=== PATIENT | female | born 1975 | race Caucasian/White ===

== ENCOUNTER 2025-09-07 17:48 | Emergency (ER) | payer OTHER, SELFPAY ==
[2025-09-07 17:54] VITALS: BP 157/95; PULSE 104; RESP 24; TEMP 36.5; O2SAT 97; BMI 32.6
--- OUTSIDE RECORDS SUMMARY | 2025-09-07 17:59 | XMS_ITS | Clinical Summary ---
Author Organization [facility] Address [address] [place] [address] Care Team Providers [employer] Underwriter Name Role Phone No Ref-Primary, Physician Primary Care Provider Allergies No known active allergies Medications * This document contains information received from the source organization and may not represent a complete record from that organization. MedicationSigDispense QuantityRefillsLast FilledStart DateEnd DateStatus LANsoprazole (PREVACID) 30 MG capsule Take 30 mg by mouth daily.Active LamoTRIgine (LAMICTAL PO) Take 200 mg by mouth 2 times dailyActive drospirenone-ethinyl estradiol (KIMBERLY) 3-0.02 MG per tablet Take 1 tablet by mouth dailyActive Topiramate (TOPAMAX PO) Take 25 mg by mouth 2 times dailyActive NALTREXONE HCL PO Take by mouth dailyActive PROPRANOLOL HCL PO Take 10 mg by mouth dailyActive VITAMIN D, CHOLECALCIFEROL, PO Take by mouth dailyActive IBUPROFEN PO Take 600 mg by mouth dailyActive Vit-Fe Fumarate-FA ( MULTIVITAMIN PLUS IRON) 27-0.8 MG TABS Take 1 tablet by mouth dailyActive Docusate Sodium (COLACE PO) Active mometasone (NASONEX) 50 MCG/ACT nasal spray Indications:Acute rhinitisSpray 2 sprays into both nostrils daily 1 Box Active metoclopramide (REGLAN) 10 MG tablet Take 1 tablet (10 mg) by mouth 3 times daily as needed (Headache, Nausea or Vomiting) 20 tablet 2Active Active Problems No known active problems Family History Medical HistoryRelationCommentsDepressionBrotherSubstance AbuseBrotherAnxiety DisorderMaternal GrandfatherDepressionMaternal GrandfatherAnxiety Disorder Maternal GrandmotherBipolar DisorderMaternal GrandmotherDepressionMaternal GrandmotherAnxiety DisorderMotherDepressionMotherRelationStatusCommentsBrother AliveMaternal GrandfatherAliveMaternal GrandmotherDeceasedMotherAlive Social History Tobacco UseTypesPacks/DayYears UsedDateSmoking Tobacco: NeverSmokeless Tobacco: NeverAlcohol UseStandard Drinks/WeekCommentsYes0 (1 standard drink = 0.6 oz pure alcohol)Adolescent EducationAnswerDate RecordedGetting School Help NeededNot on file3CommentsUnknownSex and Gender InformationValueDate RecordedSex Assigned at BirthNot on fileLegal ChkMcpscq22/04/2012 3:01 AM [facility] Gender IdentityNot on fileSexual OrientationNot on file Last Filed Vital Signs Vital SignReadingTime TakenCommentsBlood Yvxesxgn905/9009/12/2022 6:40 PM [facility] Tftox069109/12/2022 6:40 PM JTRZwalqzatgkd95.4 ??C (97.6 ??F)09/12/2022 11:43 AM CSTRespiratory Mbrz782711/13/2021 6:40 PM CSTOxygen Hluogbngvx44%09/12/2022 6:40 PM CSTInhaled Oxygen Concentration--Dmylnm22.2 kg (150 lb 6.4 oz)01/03/2016 5:12 PM GSEOlkmmb346.2 cm (5' 7)07/13/2011 3:03 PM CDTBody Mass Index23.561 3:03 PM CDT Plan of Treatment Health MaintenanceDue DateLast DoneCommentsADVANCE CARE PIUICBJM1976ANNUAL REVIEW OF HM ZMXBLC2407/05/1976CT QUWOYRVJZVEH48/12/8228CYX9207/05/1976FLEX SIG 1976MAMMO NINXDXQAR1976sDNA (Cologuard)1976COLONOSCOPY 1986COLORECTAL CANCER XTWLFRMGV19/12/1986HIV OMZFRAZQS02/12/1991HEPATITIS C ZACLKHJHA47/12/1379DDQ07/12/1997HEPATITIS B VACCINE (2 of 3 - Hep B Twinrix 3- dose series)LIPID2016DTAP/TDAP/TD VACCINE (2 - Td or Tdap)YEARLY PREVENTIVE VISIT1PHQ-2 (once per calendar year)5COVID-19 VACCINE (5 - season)2025 07/17/2022, 08/25/2021, 01/19/2021, Additional history existsINFLUENZA VACCINE (#1), 07/21/2021, 08/13/2020, Additional history exists DIABETES CILDIZKSZ64, 11/23/2007, 10/16/2006ZOSTER VACCINE (1 of 2)2026HPV VACCINE (No Doses Required)CompletedMENINGITIS VACCINEAged OutNo longer eligible based on patient's age to complete this topicPNEUMOCOCCAL VACCINE: PEDIATRICS (0 to 5 YEARS) AND AT-RISK PATIENTS (6 to 49 YEARS)Aged Out No longer eligible based on patient's age to complete this topic Procedures Procedure NamePriorityDate/TimeAssociated DiagnosisCommentsBASIC METABOLIC PANEL STAT111/13/2021 12:12 PM [facility] from Last 3 Months or Most Recently Relevant to Health Maintenance Results * (ABNORMAL) Basic metabolic panel (BMP) (09/12/2022 12:12 PM [facility])ComponentValue Ref RangeTest MethodAnalysis TimePerformed AtPathologist ZaiaeypczUeosac043084 - 145 mmol/L111/13/2021 1:02 PM [facility] LABORATORYPotassium4.33.4 - 5.3 mmol/L 09/12/2022 1:02 PM [facility] VHNBALSCQSDmnzqkld49504 - 107 mmol/L111/13/2021 1:02 PM [facility] LABORATORYCarbon Dioxide (CO2)2422 - 29 mmol/L111/13/2021 1:02 PM [facility] RH LABORATORYAnion Bvg760 - 15 mmol/L111/13/2021 1:02 PM [facility] LABORATORYUrea Wuynvfyu66.06.0 - 20.0 mg/dL09/12/2022 1:02 PM [facility] LABORATORYCreatinine1.01 (H)0.51 - 0.95 mg/dL09/12/2022 1:02 PM [facility] LABORATORYCalcium9.98.6 - 10.0 mg/dL09/12/2022 1:02 PM [facility] KRABOSQWZOKlfuoci128(H)70 - 99 mg/dL09/12/2022 1:02 PM [facility] LABORATORYGFR Tibflhsy73>60 mL/min/1.43v23209/12/2022 1:02 PM [facility] LABORATORYComment:Effective September 13, 2021 eGFRcr in adults is calculated using the 2020 CKD-EPI creatinine equation which includes age and gender (Shira et al., NEJ, DOI: 10.1056/BUAPbm4939712)Specimen (Source) Anatomical Location / LateralityCollection Method / VolumeCollection Time Received TimeBloodBLOOD SPECIMEN / UnknownVenipuncture / Msxrlrf7409/12/2022 12:12 PM CST09/12/2022 12:36 PM [facility] Narrative Authorizing ProviderResult TypeResult StatusJerome Fredi Shine MDLAB - BLOOD ORDERABLESFinal ResultPerforming OrganizationAddressCity/State/ZIP CodePhone Number [facility] [address] [facility] (1st floor, no room number) [place] [address], [facility] [phone] from Last 3 Months or Most Recently Relevant to Health Maintenance Insurance * Guarantor: Clary Garcia TypeRelation to PatientDate of BirthPhone Billing [id number] [place] [address] Care Teams Team MemberRelationshipSpecialtyStart DateEnd Date No Ref-Primary, Physician PCP - Rvqlyot47/20/22
--- OUTSIDE RECORDS SUMMARY | 2025-09-07 17:59 | XMS_ITS | Clinical Summary ---
Author Organization [facility] Address [address] [place] [address] Care Team Providers Care Central Supply Aide Name Role Phone ManasErlinda wallacerajinder LOVE Unavailable [phone] Lore Razo Unavailable [phone] Neelima Almanza DO Primary Care Provid er Allergies Active AllergyReactionsCriticalityNoted QbxoRvbtcxpwDvsvdswuzRipm15/04/2025Mold Other - Describe In Comment Field04/02/2012 nasal congestion and sneezing Pollen ExtractsOther - Describe In Comment Field04/02/2012 nasal congestion and sneezing RagweedOther - Describe In Comment Field04/02/2012 nasal congestion and sneezing OggxskvyTiwvhqkRun23/25/2013 Medications * This document contains information received from the source organization and may not represent a complete record from that organization. MedicationSigDispense QuantityRefillsLast FilledStart DateEnd DateStatus lamoTRIgine (LAMICTAL) 200 mg tablet Take 200 mg by mouth 2 times daily.10/15/2020ctive durable medical equipment (DME) Indications:Pronation deformity of left foot,Metatarsalgia of both feetCustom functional orthotics for left foot pronation and metatarsal bilateral feet. Please add metatarsal support bilateral and extrinsic rearfoot posting left foot. 1 Each 06/01/2021ctive melatonin 3 mg tablet Take 1 Tablet (3 mg) by mouth at bedtime.ctive TENS unit and electrodes cmpk Indications:Postop check,Excessive menstruation at pubertyAs directed. 4 lead Once order is placed, it should be printed and faxed to [employer] (the distributor), along with a printed picture ID of the patient, to . If [employer] needs to be reached for clarification or speak to one of their representatives, they may be reached at . ?? Many times, insurance will not cover the cost of the tens unit (and pads), and it is often more cost efficient for the patient to order the TENS device (and pads) on [employer], as the cost is close to around $30. ?? With either ordering through [employer] or [employer], directions will be included in the package and patient would follow those 1 Each 2023ctive medication order composer Zinc: Daily Magnesium Citrate: Daily : Daily Fish oil: Daily Vitamin D 5000 IU: Daily Probiotic: Daily03/04/2024ctive cholecalciferol (VITAMIN D3) 5,000 unit capsule 03/31/2014ctive Sjgkh-2-TLP-EPA-Fish Oil (Fish OiL) 1,000 (120-180) mg cap 07/24/2023ctive pnzoenbk81/iron donis/folic/dha ( DHA+COMPLETE ORAL) 03/31/2014ctive varenicline tartrate 1 mg tablet Indications:Current every day vapingTake 1 mg by mouth two times daily with meals. 84 Tablet 5Active Additional Information Patient not taking.Reported on 09/03/2025 omeprazole 40 mg Delayed-Release capsule Indications:Gastroesophageal reflux disease without esophagitisTake 1 Capsule (40 mg) by mouth once daily before a meal. 90 Capsule 5Active topiramate 25 mg tablet Indications:Obesity, Class I, BMI 30-34.9Take 2 Tablets (50 mg) by mouth two times daily. Please contact prescribing provider for directionson how to safely discontinue this medication. 360 Tablet 5Active buPROPion (WELLBUTRIN XL) 300 mg Extended-Release tablet Indications:Obesity, Class I, BMI 30-34.9,AnxietyTake 1 Tablet (300 mg) by mouth once daily. 90 Tablet 5Active naltrexone (REVIA) 50 mg tablet Indications:Obesity, Class I, BMI 30-34.9Take 1 Tablet (50 mg) by mouth once daily. Naltrexone should be stopped 7 days prior to any surgeryor with concurrent oral opioids, opioid pain pump, opioid pain patches, opioid buccal films or medical marijuana. 90 Tablet 5Active progesterone micronized (PROMETRIUM) 100 mg capsule Indications:Menorrhagia with regular cycle,Perimenopause,Hot flashesTAKE 3 CAPSULES BY MOUTH AT BEDTIME 180 Capsule 5Active psyllium (MetamuciL) 0.4 gram capsule Take 1 Capsule by mouth once daily.5Active gabapentin (NEURONTIN) 300 mg capsule Indications:Lumbar radiculopathyTake 1 Capsule (300 mg) by mouth three times daily. 90 Capsule 5Active estradioL (ESTRACE) 0.01% (0.1 mg/g) vaginal cream Indications:Perimenopause,Dyspareunia in femaleInsert 1 g into the vagina once weekly. Continue 1 g once weekly after that. We can adjust based onsymptoms. 42.5 g 5Active Phentermine HCl 37.5 mg capsule Indications:Obesity, Class I, BMI 30-34.9Take 1 Capsule (37.5 mg) by mouth once daily before a meal. Take before breakfast. Phentermine willneed to be discontinued 4 days prior to a surgical procedure. 30 Capsule 5Active Additional Information Patient not taking.Reported on 09/03/2025 baclofen 5 mg tab tablet Indications:Lumbar radiculopathy,Bilateral sciaticaTake 2 Tablets (10 mg) by mouth three times daily. 180 Tablet 6Active Additional Information Patient not taking.Reported on 09/03/2025 naproxen (NAPROSYN) 500 mg tablet Indications:Low back pain radiating to both legsTake 1 Tablet (500 mg) by mouth two times daily with meals. 60 Tablet 5Active Additional Information Patient not taking.Reported on 09/03/2025 valACYclovir (VALTREX) 1 gram tablet Indications:RashTake 1 Tablet (1 g) by mouth three times daily for 7 days. 21 Tablet 5Active triamcinolone (ARISTOCORT; KENALOG) 0.1 % cream Indications:RashApply topically to affected area(s) two times daily. 80 g 5Active tiZANidine (ZANAFLEX) 4 mg tablet Indications:Lumbar radiculopathyTake 1 Tablet (4 mg) by mouth every 6 hours if needed for Muscle Spasm. 90 Tablet 5Active predniSONE (DELTASONE) 20 mg tablet Indications:Low back pain radiating to both legs3 tabs/day orally x 2 days, then 2 tabs/day x 3 days, then 1 tab/day x 3 days, then stop 15 Tablet /Discontinued(Reorder (E-cancel not sent)) tiZANidine (ZANAFLEX) 4 mg tablet Indications:Lumbar radiculopathyTake 1 Tablet (4 mg) by mouth every 6 hours if needed for Muscle Spasm. 90 Tablet /Discontinued(Reorder (E-cancel not sent)) phentermine (ADIPEX-P) 37.5 mg tablet Indications:Obesity, Class I, BMI 30-34.9Take 0.5 Tablets (18.75 mg) by mouth once daily before a meal. Take before breakfast. Phentermine will need to be discontinued 4 days prior to a surgical procedure. 30 Tablet /Discontinued tiZANidine (ZANAFLEX) 4 mg tablet Indications:Lumbar radiculopathyTake 1 Tablet (4 mg) by mouth every 6 hours if needed for Muscle Spasm. 90 Tablet /08/2025Discontinued(Reorder (E-cancel not sent)) predniSONE (DELTASONE) 20 mg tablet Indications:Low back pain radiating to both legs3 tabs/day orally x 2 days, then 2 tabs/day x 3 days, then 1 tab/day x 3 days, then stop 15 Tablet /12/2024Discontinued(*Patient states no longer taking) baclofen 5 mg tab tablet Indications:Lumbar radiculopathy,Bilateral sciaticaTake 1 Tablet (5 mg) by mouth three times daily for 3 days, THEN 2 Tablets (10 mg) three times daily for 27 days. 171 Tablet /06/2025Discontinued(Reorder (E-cancel not sent)) meloxicam 15 mg tablet Indications:Lumbar radiculopathy,Bilateral sciaticaTake 1 Tablet (15 mg) by mouth once daily for 14 days. 14 Tablet Discontinued(Reorder (E-cancel not sent)) meloxicam 15 mg tablet Indications:Lumbar radiculopathy,Bilateral sciaticaTake one tablet daily as needed for pain. Do not take with other NSAIDs (such as ibuprofen, naproxen, Aleve, Advil). Take with food. 30 Tablet Discontinued(*Med ineffective) naproxen (NAPROSYN) 500 mg tablet Indications:Low back pain radiating to both legsTake 1 Tablet (500 mg) by mouth two times daily with meals. 60 Tablet Discontinued(*Med ineffective) Active Problems ProblemNoted DateDiagnosed DatePrimary acinar cell carcinoma of parotid gland 07/27/2025urrent every day rspwis3201/07/2025Obesity, Class I, BMI 30-34.9 04/17/2024Obesity (BMI 30-39.9)03/20/20242155Rmzrpddaettd83/27/2024Skin cancer 09/05/2023 Overview (12/18/2023): 08/30/2023, left medial chest, superficial and nodular BCC, excised 11/22/2023 Uterine nrjpsau5503/16/2023Endometrial polyp03/16/20232067Qgomsunjokw95/23/2023LGSIL of cervix of undetermined eqsbafkgwgxg45/16/2023 Overview (01/26/2025): 01/2023 LSIL/HPV negative 12/2024 NIL/HPV negative Plan: Pap/HPV due 12/2027 Mqnpory7606/09/2014Parotid mass03/15/2012Menstrual ngyoooiq77/23/2009Esophageal odjnkg2704/04/2005 Overview (04/21/2021): LW Onset: 59Skv86 ; Gastroesophageal Reflux Disease Resolved Problems ProblemNoted DateDiagnosed DateResolved TqdhGjwpua78Parotid massNormal fumfslcp84Supervision of other normal dwujulcnv32Other specified screening(V28.89) Methamphetamine abuse06/16/Frontal sinusitis ipolar 1 kvedxznh45/23/ttention deficit hyperactivity disorder (ADHD), predominantly inattentive type04/04/2005 06/07/2023 Overview (07/21/2021): LW Onset: 76Yii38 Encounters DateTypeDepartmentCare QhvhKzqmthjmbaw52/12/2025Refill [facility] [address] [place] [address] Neelima Almanza DO Refill Request (Tizanidine/)09/03/2025 5:35 PM CSTOffice Visit [facility] [address] [address] Laverne Arias MD Rash09/03/20258598Qyisww15/10/2025Orders Only [facility] [address] [place] [address] Neelima Almanza DO <No scans attached>09/02/2025Orders Only [facility] [address] [place] [address] Neelima Almanza DO <No scans attached>09/02/2025Results Follow-Up [facility] [place] [address] [place] [address] Rafy Barker MD 09/01/2025 12:15 PM CSTAncillary Procedure [facility] [address] [facility] [address] [place] [address] 09/01/2025Telephone [facility] [address] [facility] [address] [place] [address] Lucio Linder MD Screening (Injection Prescreening- Lumbar RFA)08/31/20259231Gxciea91/08/2025Refill [facility] [address] [place] [address] Neelima Almanza, DO Refill Request (Baclofen/)08/29/2025Refill [facility] [address] [place] [phone] Lore Razo PA Refill Request (Bupropion)08/25/2025Orders Only [facility] [address] [place] [phone] Marissa Garcia MBBS <No scans attached>08/25/2025[facility] [address] [place] [phone] Marissa Garcia MBBS <No scans attached>08/25/2025Refill [facility] [address] [place] [address] Neelima Almanza DO Refill Request (meloxicam 15 mg tablet)08/14/2025Telephone [facility] [address] [place] [address] Tylor Osullivan DO Screening (INJECTION PRESCREEN)08/13/2025 1:45 PM CSTOffice Visit [facility] [address] [place] [address] Rafy Barker MD Back Pain (Follow up)08/12/2025 11:00 AM CSTAncillary Procedure [facility] [address] [facility] [address] [place] [address] 08/12/20250761Vhwiyz86/18/2025Refill [facility] [address] [place] [address] Lore Razo PA Refill Request (Phentermine)08/10/2025Refill [facility] [address] [place] [address] Neelima Almanza DO Refill Request (tiZANidine (ZANAFLEX) 4 mg tablet)08/10/2025Medical Messaging [facility] [address] [place] [address] Rafy Barker MD Sciatica pain08/10/20256995Vrdxop53/16/4307Cmsitl80/05/2025 11:44 AM AIRPLANE ENGINEER - 07/29/2025 11:59 PM CSTHospital Encounter [facility] [place] [address] [facility] [address] [place] [address] Rafy Barker MD Ferebee, Ashley, PT Low back pain radiating to both legs; Lumbar facet borvtmwrdte61/05/4908Htbsln03/03/2025 10:40 AM CSTOffice Visit [facility] [address] [place] [address] Neelima Almanza DO Back Pain (follow up x 1 mo/worsening pain); Medication Management (gabapentin) 07/26/20252371Wmtoon69/02/2025Refill [facility] [place] [address] [place] [phone] Clary Terry DO Refill Request (Progesterone Micronized)07/24/2025 10:00 AM CDTTelemedicine [facility] [address] [place] [address] Lore Razo PA Telehealth (No vitals); Weight ([facility] follow up Bupropion, Naltrexone, Topiramate. Wants to discuss GLP-1 today. Zepbound and Saxenda are covered but high copay. /RD 09/02 Kristy )07/23/2025Refill [facility] [address] [place] [address] Neelima Almanza DO Refill Request (gabapentin (NEURONTIN) 100 mg capsule Take 1 cap oral in AM and at noon along with 3 caps at night. After 3-4 days if needed consider increasing to 2 caps in AM and at noon along withevening dose of 3 caps.//)07/21/2025Travel 07/17/2025Refill [facility] [address] [place] [address] Rafy Barker MD Refill Request (Prednisone)07/12/20257536Wheifw33/15/2025 11:15 AM CDTOffice Visit [facility] [address] [place] [address] Rafy Barker MD Back Pain (Follow up)07/08/20256234Ficzhj72/06/20251462Wmsvhn72/07/2025Telephone [facility] [address] [place], [place] [phone] Rafy Barker MD Wqlqmhna12/02/2025Refill [facility] [address] [place] [address] Neelima Almanza DO Refill Request (Premarin)06/24/2025 1:05 PM CDTOffice Visit [facility] [address] [place] [address] Neelima Almanza DO Back Pain (Lower back pain + Sciatica x March); Menopause (perimenopause) 06/24/20253668Nhcnfh35/28/2025Travelfrom Last 3 Months Immunizations ImmunizationAdministration DatesNext DueAMB INFLUENZA, IIV4 (AGE=>6MOS) MDV (Flu Clinic Only)06/24/2020HepA-HepB (Twinrix)07/14/2014Influenza Virus, Unspecified 06/09/2014Influenza, CCIIV3 (Age >=6 MO) (Egg Free)07/07/2024Inflvicky, IIV4 06/07/2023,07/17/2022,07/21/2021,08/13/2020Tdap01/30/2012Tuberculin (PPD) 04/12/2014 Family History Medical HistoryRelationNameCommentsGood HealthBrother 1JaredStrokeBrother 2 Matthewfollowed by seizure - now seizure free x 3 yearsDiabetesFather ParkinsonismFatherCancerMaternal Grandfatherfatal in 40's, type unknown Cancer-pancreaticMaternal Grandmotherage ~79, fatalAnxiety disorderMotherAsthma MotherDepressionMotherDiabetes type IPaternal GrandfatherStrokePaternal GrandmotherGood HealthSonx 2Cancer-breastNo Family HistoryRelationNameStatus CommentsBrother 1JaredAliveBrother 2MatthewAliveFatherAliveMaternal Grandfather DeceasedMaternal GrandmotherDeceasedMotherAlivePaternal GrandfatherDeceased Paternal GrandmotherDeceasedSonx 2Alive Social History Tobacco UseTypesPacks/DayYears UsedDateSmoking Tobacco: NeverPassive Smoke Exposure: NeverSmokeless Tobacco: Never Tobacco Cessation:Counseling Given: Not Answered Alcohol UseStandard Drinks/WeekCommentsNot Currently0 (1 standard drink = 0.6 oz pure alcohol)occasionally recently, heavy in past; quit 11/19/09Humiliation, Afraid, Rape, and Kick questionnaireAnswerDate RecordedWithin the last year, have you been afraid of your partner or ex-partner?No07/21/2021Within the last year, have you been humiliated or emotionally abused in other ways by your partner or ex-partner?No07/21/2021Within the last year, have you been kicked, hit, slapped, or otherwise physically hurt by your partner or ex-partner?No 07/21/2021Within the last year, have you been raped or forced to have any kind of sexual activity by your partner or ex-partner?No07/21/2021HQ-2AnswerDate RecordedPHQ-2 TOTAL GTSYA916Social ConnectionsAnswerDate RecordedDo you often feel lonely or isolated from those around you?lcohol UseAnswer Date RecordedHow often do you have a drink containing alcohol?How many drinks containing alcohol do you have on a typical day when you are drinking?How often do you have five or more drinks on one occasion?0 07/27/2025Financial Resource StrainAnswerDate RecordedDifficulty of Paying Living Ezanwiod215/16/2025Difficulty of Paying Living ExpensesNot on file 08/09/2025Food InsecurityAnswerDate RecordedDo you worry your food will run out before you are able to buy more?Transportation NeedsAnswerDate RecordedDoes lack of transportation keep you from medical appointments?1 08/09/2025Does lack of transportation keep you from work, meetings or getting things that you need?Housing StabilityAnswerDate RecordedWhat is your housing situation today?UtilitiesAnswerDate RecordedDo you have trouble paying for utilities (for example, heat, electricity, water, phone)?1 08/09/2025CommentsNoSex and Gender InformationValueDate RecordedSex Assigned at AcfuxBfklcn96/02/2021 2:56 PM CSTLegal ZvqZrkbso95/14/2013 6:49 AM CSTGender ZvemdgpyFjqfld74/02/2021 2:56 PM CSTSexual OrientationStraight 10/26/2020 2:56 PM CSTOccupationIndustryJob Start DateJob End DateHAIRSTYLISTNot on fileNot on fileNot on filelead webmaster & office mgrNot on fileNot on fileNot on file Obstetrics History GravidaParaTermPretermABIABSABEctopicMultipleLivingLive Vvwlkk643070HxlfRlecopg GATotal LaborLabor/2nd/2aiTmekskZxoYynpUbncNSFGidL2F1YsvqBtlc0163IB09/07/2003 Yyiq92l2t19i 00m/3.09 kg (6 lb 13 oz)MVag-SpontEpidural,EpiduralNLivingMason Delivery Location:[facility]06/20/20102463Nhlr07x5g2x 30m/3.06 kg (6 lb 12 oz)MVagEpidural ,EpiduralNLivingMylesJohnsonDelivery Location:[facility] Comments:No complications Last Filed Vital Signs Vital SignReadingTime TakenCommentsBlood Lxadvkbp179/7209/03/2025 5:30 PM AIRPLANE ENGINEER Tbyju105409/03/2025 5:30 PM OGXMwwdqieuvsw07.6 ??C (97.9 ??F)09/03/2025 5:30 PM CSTRespiratory Qmfd301911/04/2024 5:30 PM CSTOxygen Qwuswnvmsi70%09/03/2025 5:30 PM CSTInhaled Oxygen Concentration--Gzebfq57.5 kg (201 lb 11.2 oz)08/13/2025 1:00 PM MRLJdnnzi469.5 cm (5' 6.34)07/27/2025 10:48 AM CSTBody Mass Index32.22 07/27/2025 10:48 AM AIRPLANE ENGINEER Plan of Treatment DateTypeDepartmentCare Team (Latest Contact Info)Psmmecuwswn21/14/2026 1:[address]Tele[address] [phone] Kristy Bah, KATE [address] [place] [address] 10/26/2025 3:30 PM CSTTelemedicine [address] [phone] [place] [address] [place] [address] Health MaintenanceDue DateLast DoneCommentsPneumococcal series for age 6-49 (1 of 2 - PCV)1995Hepatitis B series for 19+ (2 of 3 - Hep B Twinrix 3-dose series)Tetanus cpfjsro63COVID-19 vaccine series ( season)/, 07/17/2022, 08/25/2021, Additional history existsInfluenza Vaccine (#1)/, 06/07/2023, 07/17/2022, Additional history existsDepression screening for age 12+10/29/2025 10/29/2024, 02/01/2023, 07/21/2021Mammogram for age 45-7504/604/05/2025, 10/21/2021, 10/28/2018BMI (ht and wt on same day) for age 18+07/27/2026 07/27/2025, 07/24/2025, 07/08/2025, Additional history existsPap test for age 21-6504/8001/07/2025, 01/07/2025, 02/01/2023, Additional history exists Lipids for age 45-7504/, 03/13/2024, 11/04/2020, Additional history existsColonoscopy through age 75HIV for age 15-65 Fdrtcwrjb25/04/2013, 12/29/2009Hepatitis C screening for age 18-79Completed 10/28/2012 Procedures Procedure NamePriorityDate/TimeAssociated DiagnosisCommentsXR SPINE LUMBAR MINIMUM 4 IMBKUCdoerja11/09/2025 12:28 PM AIRPLANE ENGINEER Low back pain radiating to both legs Numbness and tingling of both feet Degeneration of intervertebral disc of lumbar region with discogenic back pain Lumbar facet arthropathy MR SPINE LUMBAR CNSKHZ2510/12/2024 11:35 AM AIRPLANE ENGINEER Low back pain radiating to both legs Numbness and tingling of both feet Degeneration of intervertebral disc of lumbar region with discogenic back pain Lumbar facet arthropathy SCAN-LYPFEZZAPZA25/22/2025 10:30 AM CDT URINALYSIS MACROSCOPIC - [facility] ONLY POC DIP (QUEST)Uaxcpui0506/24/2025 2:08 PM CDT Urgency of urination BASIC METABOLIC EQKFXCxvurbc12/01/2025 2:08 PM CDT Elevated serum creatinine LIPID PANEL W REFLEX MEASURED RKFVgdeqwe09/16/2025 1:29 PM CDT Screening for cholesterol level CAN SOLDERER THIN PREP PAP DIAGNOSTIC MFSPWFKyurlpn60/16/2025 1:15 PM CDT LGSIL of cervix of undetermined significance XR MAMMO АНДРЕЙ BILAT ZRGGHHUsqismm05/09/2025 1:17 PM CDT Visit for screening mammogram ANTI HIV 1/0Vgvzlln38/04/2013 2:05 PM AIRPLANE ENGINEER Screen for STD (sexually transmitted disease) ANTI LVTDqswuvw30/04/2013 2:05 PM AIRPLANE ENGINEER Screen for STD (sexually transmitted disease) from Last 3 Months or Most Recently Relevant to Health Maintenance Results * XR SPINE LUMBAR MINIMUM 4 VIEWS (09/01/2025 12:28 PM AIRPLANE ENGINEER)Anatomical Region LateralityModalitySpine, LUMBAR SPINEDigital RadiographySpecimen (Source) Anatomical Location / LateralityCollection Method / VolumeCollection Time Received Time09/01/2025 8:59 PM AIRPLANE ENGINEER Impressions 09/01/2025 8:59 PM AIRPLANE ENGINEER 1. Pijs-ng-wemgzopi lumbar degenerative changes. 2. Unchanged alignment on flexion-extension views. Dictated by Enrique Granados MD @ 09/01/2025 8:59:55 PM (Electronically Signed) Narrative 09/01/2025 8:59 PM AIRPLANE ENGINEER For Patients: As a result of the Century Cures Act, medical imaging exams and procedure reports are released immediately into your electronic medical record. You may view this report before your referring provider. If you have questions, please contact your health care provider. INDICATION: Low back pain radiating to both legs. TECHNIQUE: Lumbar spine four views with flexion and extension. COMPARISON: 07/26/2023. FINDINGS: Grade 1 anterolisthesis of L4 on L5 and grade 1 retrolisthesis of L2 on L3 is unchanged on flexion-extension views. Qedo-aq-uhfiuftf degenerative changes greatest at L4-5 and L2-3. No acute or other osseous abnormality. Right upper quadrant surgical clips. Fecal loading of the proximal colon. Procedure Note Enrique Granados, DO - 09/01/2025 For Patients: As a result of the Cures Act, medical imagingexams and procedure reports are released immediately into your electronicmedical record. You may view this report before your referring provider.If you have questions, please contact your health care provider. INDICATION: Low back pain radiating to both legs. TECHNIQUE: Lumbar spine four views with flexion and extension. COMPARISON: 07/26/2023. FINDINGS: Grade 1 anterolisthesis of L4 on L5 and grade 1 retrolisthesis of L2 on L3is unchanged on flexion-extension views. Wzcd-fh-arscwnql degenerativechanges greatest at L4-5 and L2-3. No acute or other osseous abnormality.Right upper quadrant surgical clips. Fecal loading of the proximal colon. IMPRESSION: 1. Cqyx-sz-tmigbjzr lumbar degenerative changes. 2. Unchanged alignment on flexion-extension views. Dictated by Enrique Granados MD @ 09/01/2025 8:59:55 PM (Electronically Signed) Authorizing ProviderResult TypeResult StatusMark Johnathan Barker MDGENERAL IMAGING Final Result * MR SPINE LUMBAR WO (08/12/2025 11:35 AM AIRPLANE ENGINEER)Anatomical RegionLaterality ModalitySpine, LUMBAR SPINEMagnetic ResonanceSpecimen (Source)Anatomical Location / LateralityCollection Method / VolumeCollection TimeReceived Time 08/12/2025 12:02 PM AIRPLANE ENGINEER Narrative 08/12/2025 12:02 PM AIRPLANE ENGINEER For Patients: As a result of the Cures Act, medical imaging exams and procedure reports are released immediately into your electronic medical record. You may view this report before your referring provider. If you have questions, please contact your health care provider. Indication: Low back pain radiating to both legs. Technique: Multiplanar multisequence noncontrast MR images of the lumbar spine. Comparison: MRI lumbar spine 11/26/2023. Findings: The lumbar lordosis is preserved. Mild leftward lumbar curvature. Vertebral heights maintained. No acute fracture. No T1 hypointense lesions or significant marrow edema. Normal conus terminates at T12-L1. T12-L1 and L1-2: No spinal canal or neural foraminal narrowing. L2-3: Mild retrolisthesis. Moderate disc degeneration mild disc height loss. Shallow disc bulge. Dorsal annular fissure. Mild facet arthropathy. Minimal spinal canal narrowing. No neural foraminal narrowing. L3-4: Mild disc degeneration. Shallow disc bulge. Mild facet arthropathy. No spinal canal or neuralforaminal narrowing. L4-5: Mild disc degeneration. Shallow disc bulge. Moderately advanced facet arthropathy. Enlarging bilateral facet joint effusions. New very small left foraminal synovial cyst (series 5, image 14). Minimal spinal canal narrowing. No neural foraminal narrowing. Improved minimal edema in the left posterior elements L5-S1: Mild disc degeneration. Shallow disc bulge. Bjrt-pt-ceoinspl facet arthropathy. No spinal canal or neural foraminal narrowing. Impression: 1. At L4-5, moderately advanced facet arthropathy. Enlarging bilateral facet joint effusions may besecondary to facet instability. New very small left foraminal synovial cyst without nerve root impingement. Improved minimal edema in the left posterior elements, compatible with a stress response. 2. Mild spondylosis at additional levels is not significantly changed. No spinal canal or neural foraminal stenosis. Dictated by El Collado MD @ 08/12/2025 12:02:54 PM (Electronically Signed) Procedure Note El Collado MD - 08/12/2025 For Patients: As a result of the 21st Century Cures Act, medical imagingexams and procedure reports are released immediately into your electronicmedical record. You may view this report before your referring provider.If you have questions, please contact your health care provider. Indication: Low back pain radiating to both legs. Technique: Multiplanar multisequence noncontrast MR images of the lumbar spine. Comparison: MRI lumbar spine 11/26/2023. Findings: The lumbar lordosis is preserved. Mild leftward lumbar curvature.Vertebral heights maintained. No acute fracture. No T1 hypointense lesionsor significant marrow edema. Normal conus terminates at T12-L1. T12-L1 and L1-2: No spinal canal or neural foraminal narrowing. L2-3: Mild retrolisthesis. Moderate disc degeneration mild disc heightloss. Shallow disc bulge. Dorsal annular fissure. Mild facet arthropathy.Minimal spinal canal narrowing. No neural foraminal narrowing. L3-4: Mild disc degeneration. Shallow disc bulge. Mild facet arthropathy.No spinal canal or neural foraminal narrowing. L4-5: Mild disc degeneration. Shallow disc bulge. Moderately advancedfacet arthropathy. Enlarging bilateral facet joint effusions. New verysmall left foraminal synovial cyst (series 5, image 14). Minimal spinalcanal narrowing. No neural foraminal narrowing. Improved minimal edema inthe left posterior elements L5-S1: Mild disc degeneration. Shallow disc bulge. Ktrm-ud-bxjytvqf facet arthropathy. No spinal canal or neural foraminal narrowing. Impression: 1. At L4-5, moderately advanced facet arthropathy. Enlarging bilateralfacet joint effusions may be secondary to facet instability. New verysmall left foraminal synovial cyst without nerve root impingement.Improved minimal edema in the left posterior elements, compatible with astress response. 2. Mild spondylosis at additional levels is not significantly changed. Nospinal canal or neural foraminal stenosis. Dictated by El Collado MD @ 08/12/2025 12:02:54 PM (Electronically Signed) Authorizing ProviderResult TypeResult StatusMark Johnathan Barker MDMRFinal Result * SCAN-COLONOSCOPY (07/15/2025 10:30 AM CDT) Narrative Procedure Note Nikita Giraldo MD - 07/15/2025 9:39 AM CDT [facility] [address] [address], [address], [place] [address] Patient Name: Clary Daniels Gender: Female Exam Date: 07/15/2025 Visit Number: [id number] Age: 50 Years Date of : 1975 Attending MD: Nikita Giraldo MD Medical Record#: [id number] Procedure: Colonoscopy Indications: Colorectal cancer screening Referring MD: Chad Orantes PAC Primary MD: Chad Orantes PAC Medications: Admitting Medications: 0.9% Normal Saline at O Ondansetron Hydrochloride (Zofran) given 4mg by IV Intra Procedure Medications: Patient received monitored anesthesia care. No IV medications given during procedure. Complications: No immediate complications Procedure: An examination of the heart and lungs was performed and found to be within acceptable limits. . The patient was therefore deemed a reasonablecandidate for endoscopy and sedation. The risks and benefits of the procedure were explained to the patient.After obtaining informed consent, I passed the scope without difficultyvia the rectum to the ileum. The appendiceal orifice and ic valve wereidentified. The scope was retroflexed during the examination The qualityof the prep was good (Miralax/Gatorade Double Prep). This was a complete examination throughout the entire colon. Findings: ?? Normal finding. Location - ileum. 3cm ?? Polyp location: cecum. Quantity: 2. Size: 2 mm, 5 mm. Polyp shape:sessile. Maneuver: polypectomy was performed with a cold snare. Removal: complete. Retrieval: complete. Bleeding: none. ?? Polyp location: ascending colon. Quantity: 1. Size: 8 mm. Polypshape: sessile. Maneuver: polypectomy was performed with a cold snare. Removal: complete. Retrieval: complete. Bleeding: none. Remainder of the exam is normal. Impression: Screening Colonoscopy Colorectal polyps Preliminary Plan: The patient and their physician will receive a copy of the pathologyreport as well as pathology-based recommendations for future screening orsurveillance. Pathology Results: A: COLON, CECUM, POLYPS: 1. Tubular adenoma (1) and sessile serrated adenoma (1, largerpolyp) a. Negative for high grade dysplasia in tubular adenomacomponent b. Negative for overt dysplasia in sessile serrated adenomacomponent 2. Per the colonoscopy report: a. Polyp sizes: 2 mm and 5 mm b. Resection: Complete c. Retrieval: Complete B: COLON, ASCENDING, POLYP: 1. Tubular adenoma 2. Negative for high grade dysplasia 3. Per the colonoscopy report: a. Polyp size: 8 mm b. Resection: Complete c. Retrieval: Complete MICROSCOPIC A: Performed B: Performed Electronically signed by: Brittny Gregory DO Interpreted at [facility], [address] [place] [id number] Orders Instruction(s)/Education: Instruction/Education Timeframe Assessment Colon Cancer Prevention K63.5 Colon Polyps K63.5 Final Plan: Repeat colonoscopy in 3 years. We will attempt to contact you at appropriate intervals via U.S. mail. Wemay not be able to find you or contact you at that time, therefore youshould know that the responsibility for following our recommendation restswith you. If you don't hear from us at the time your procedure is due,please contact our office to schedule an appointment. If your contactinformation should change, please contact our office so that we can updateyour record. _Electronically signed by: Nikita Giraldo MD 07/15/2025 cc: Chad Orantes PAC cc: Chad Orantes PAC Authorizing ProviderResult TypeResult StatusFadi Catherine Giraldo MDOTHERFinal Result * URINALYSIS MACROSCOPIC - [facility] ONLY POC DIP ([facility]) (06/24/2025 2:08 PM CDT)ComponentValueRef RangeTest MethodAnalysis TimePerformed AtPathologist SignatureCOLORYellowYellow Color06/24/2025 2:11 PM [facility] SEILINGCLARITYClearClear Zntqpuq0706/24/2025 2:[address] [facility]OK[facility] ARROWPECIFIC GRAVITY,URINE1.0101.010, 1.015, 1.020, 1.025 06/24/2025 2:11 PM [facility] – SEILINGPH,URINE7.06.0, 7.0, 8.0, 5.5, 6.5, 7.5, 8. 2:11 PM [facility] SEILINGUROBILINOGEN,QUALITATIVENormalNormal EU/dl06/24/2025 2:11 PM [facility] SEILINGPROTEIN, URINENegativeNegative mg/dL06/24/2025 2:11 PM CDHAS[facility] – STIGLERGLUCOSE, URINENegativeNegative mg/dL06/24/2025 2:11 PM CDHASKELL [facility] – STIGLERKETONES,URINE NegativeNegative mg/dL06/24/2025 2:11 PM [facility] – SEILINGBILIRUBIN,PINZWGdjfqezhBpkuabdj32/01/2025 2:11 PM CDHASKE[facility] – STIGLEROCCULT BLOOD,FUQOOLleyqdjyGxfhhzru65/01/2025 2:11 PM CDT [facility] EDMONDNITRITENegativeNegative06/24/2025 2:11 PM [facility] SEILINGLEUKOCYTE ESTERASENegativeNegative 06/24/2025 2:[address] [facility] BROKEN ARROWpecimen (Source) Anatomical Location / LateralityCollection Method / VolumeCollection Time Received TimeUrineURINE SPECIMEN / UnknownNon-Blood / Otjenxg9306/24/2025 2:08 PM CDT1 2:08 PM CDT Narrative Authorizing ProviderResult TypeResult StatusJacqueline Estelle Almanza DOURINE Final ResultPerforming OrganizationAddressCity/State/ZIP CodePhone Number [facility] [address] [place] [address], * (ABNORMAL) BASIC METABOLIC PANEL (06/24/2025 2:08 PM CDT)ComponentValueRef RangeTest MethodAnalysis TimePerformed AtPathologist MlxirlcfbMJBLVR155118 - 146 mmol/L1 8:17 AM CDTQUEST DIAGNOSTICSPOTASSIUM3.93.5 - 5.3 mmol/L 06/25/2025 8:17 AM CDTQUEST DIAGNOSTICSCARBON AWCTIQY6935 - 32 mmol/L 06/25/2025 8:17 AM CDTQUEST DROWDEYLBKYOTKVTPX9811 - 99 mg/dL06/25/2025 8:17 AM CDTQUEST DIAGNOSTICSComment: ? Fasting reference interval CALCIUM9.68.6 - 10.2 mg/dL06/25/2025 8:17 AM CDTQUEST DIAGNOSTICSCREATININE1.12 (H)0.50 - 0.99 mg/dL06/25/2025 8:17 AM CDTQUEST DIAGNOSTICSBUN/CREATININE RATIO 136 - 22 (calc)06/25/2025 8:17 AM CDTQUEST CVJGBRJVUCWSKGR72> OR = 60 mL/min/1.91m50506/25/2025 8:17 AM CDTQUEST DIAGNOSTICSUREA NITROGEN (BUN)147 - 25 mg/dL06/25/2025 8:17 AM CDTQUEST DIAGNOSTICSELECTROLYTE KCQMFKK70 - 17 mmol/L (calc)06/25/2025 8:17 AM CDTQUEST OEZUMNGUIROBAMAQLLS70071 - 110 mmol/L 06/25/2025 8:17 AM CDTQUEST DIAGNOSTICSSpecimen (Source)Anatomical Location / LateralityCollection Method / VolumeCollection TimeReceived TimeBloodBLOOD SPECIMEN / UnknownNon-Lab Venipuncture / Cjihwnc6306/24/2025 2:08 PM CDT1 2:08 PM CDT Narrative Authorizing ProviderResult TypeResult StatusJacqueesperanza Almanza DOCHEMISTRY Final ResultPerforming OrganizationAddressCity/State/ZIP CodePhone Number [employer] [facility] [address] [id number] [place] [address], * (ABNORMAL) LIPID PANEL W REFLEX MEASURED LDL (01/07/2025 1:29 PM CDT)Component ValueRef RangeTest MethodAnalysis TimePerformed AtPathologist Signature CHOLESTEROL, JJTVS007(H)<200 mg/dLQuest AdScore UN[facility] HealthDL BMDJKPFTQJY08 > OR = 50 mg/dLQuest AdScore KksaBBADFWTLYVQBO33<150 mg/dLQuest AdScore [facility] CreekeLDL-OIOMSWBAXUT260(H)mg/dL (calc)Bill Me LatereComment: Reference range: <100 Desirable range <100 mg/dL for primary prevention; <70 mg/dL for patients with CHD or diabetic patients with > or = 2 CHD risk factors. LDL-C is now calculated using the Misa calculation, which is a validated novel method providing better accuracy than the Friedewald equation in the estimation of LDL-C. Stephan LARIOS et al. SLAVA. 2013;310(19): 7452-5632 (http://education.[employer]/faq/FQI494) CHOL/HDLC RATIO3.5<5.0 (calc)[employer]-Jacinto LindoVandana HDL SRTKDTYNTAM867 (H)<130 mg/dL (calc)X[facility] DiagnosticsBuffalo Hospital GuichoeComment: For patients with diabetes plus 1 major ASCVD risk factor, treating to a non-HDL-C goal of <100 mg/dL (LDL-C of <70 mg/dL) is considered a therapeutic option. Specimen (Source)Anatomical Location / LateralityCollection Method / Volume Collection TimeReceived TimeBloodBLOOD SPECIMEN / Uqqqnxa4201/07/2025 1:29 PM CDT 01/07/2025 1:30 PM CDT Narrative [facility] - 01/08/2025 4:38 AM CDT FASTING:YES FASTING: YES Authorizing ProviderResult TypeResult StatusRobmasha Orantes PACHEMISTRYFinal ResultPerforming OrganizationAddressCity/State/ZIP CodePhone Number B[employer]ique Window [facility] [address] [place] [address], [facility] AutomotiveL[facility] Region [facility] [address] [place] [address] * CAN SOLDERER THIN PREP PAP DIAGNOSTIC IMAGED (01/07/2025 1:15 PM CDT)ComponentValueRef RangeTest MethodAnalysis TimePerformed AtPathologist SignatureCase Report Gynecologic Cytology Report ? Case: [id number] ? Authorizing Provider: ??Chad Orantes PA ? Collected: ? 01/07/2025 1315 ? Ordering Location: ? [facility] ?Received: ?01/07/2025 1327 ? [facility] ? First Screen: ?Lory, Earnestine ? Rescreen: ?Lisa Ruvalcaba ? Specimen: ?CAN SOLDERER ThinPrep Vial Diagnostic, Cervical ? 01/26/2025 2:56 PM [facility] INTERPRETATION/RESULTNEGATIVE FOR INTRAEPITHELIAL LESION OR MALIGNANCY (NIL) (none)01/26/2025 2:56 PM [facility] at 1456 CDTSPECIMEN ADEQUACY Satisfactory for evaluation No endocervical component seen01/26/2025 2:56 PM [facility]- CENTRAL LABORATORYHPV REQUESTHPV and PAP01/26/2025 2:56 PM [facility]-CENTRAL LABORATORYDate of LMP12/05/2504 2:56 PM [facility] LABORATORYLast Pap Date02/01/2305 2:56 PM CDT [facility]-CENTRAL LABORATORYLast Pap NebxdiUHMF26/05/2025 2:56 PM [facility]-CENTRAL LABORATORYAbnormal Pap or [place] Bx in last 5 sejcgJbm27/01/2025 2:56 PM [facility] Menstrual StatusRegular Jqkaofr4801/26/2025 2:56 PM [facility] CENTRAL LABORATORYColp Bx Done ClljlDx7201/26/2025 2:56 PM [facility] LABORATORYAdditional InformationNone Given01/26/2025 2:56 PM [facility]-CENTRAL LABORATORYComment: Cytology is screened at [facility] - [address], [place] [address] and [facility] - [address] [place] [address] and [facility] - [address] [place] [address] Interpreted at [facility] - [address], [place] [address] Automated IrmfmuQqeaqjnsdq64/05/2025 2:56 PM [facility] CENTRAL LABORATORYComment:Specimen processed successfully by automated gi tech device, ThinPrep Imaging System, [employer]ANCILLARY TESTING GYNHPV Ordered, Please see separate aqqcdx1301/26/2025 2:56 PM [facility]SCENTRAL LABORATORYNoteThe pap test is a screening technique, not a diagnostic procedure. It is used primarily to screen for squamous cancers and precursor lesions. Published studies have shown that it is subject to both false negative and false positive results. The pap test should not be used as the sole means to diagnose or exclude pre-malignant and malignant lesions.01/26/2025 2:56 PM [facility]TR[facility] LABORATORYSpecimen (Source)Anatomical Location / LateralityCollection Method / VolumeCollection TimeReceived TimeOther (Cervical) Non-Blood / Sqmclfo4801/07/2025 1:15 PM CDT01/07/2025 1:27 PM CDT Narrative Authorizing ProviderResult TypeResult StatusRobbin Rob ALBA PATHOLOGY/CYTOLOGYFinal ResultPerforming OrganizationAddressCity/State/ZIP Code Phone Number [facility] [address] [place] [address], [place] * XR MAMMO АНДРЕЙ BILAT SCREEN (12/31/2024 1:17 PM CDT)Anatomical RegionLaterality ModalityBREASTS, Breast Left, Breast RightBilateralMammographySpecimen (Source)Anatomical Location / LateralityCollection Method / VolumeCollection TimeReceived Time Impressions 01/01/2025 10:51 AM CDT There is no radiographic evidence for malignancy. Recommend annual mammograms. MAMMOGRAM ASSESSMENT: ??ACR 1 Negative PATIENTS: You will also receive a letter with your examination results in an easy to read format. ??If you have questions about your results, please contact your referring provider. Narrative 01/01/2025 10:51 AM CDT For Patients: As a result of the Century Cures Act, medical imaging exams and procedure reports are released immediately into your electronic medical record. You may view this report before your referring provider. If you have questions, please contact your health care provider. XR MAMMO АНДРЕЙ BILAT SCREEN [[id number]] CLINICAL HISTORY: ??This is an asymptomatic 49 y.o. patient. INDICATION FOR EXAM: Mammogram Screening. TECHNIQUE: CC and MLO views were obtained. ??This study was evaluated with the assistance of Computer-Aided Detection. Breast Tomosynthesis was used in interpretation. COMPARISON FILM: Yes 10/21/21 [facility] 11/07/18 [facility] FINDINGS: ??There are scattered areas of fibroglandular density. There are no dominant masses, suspicious micro calcifications or areas of architectural distortion. Authorizing ProviderResult TypeResult StatusAdhugo Kelley CNMMAMMOFinal Result * ANTI HCV (10/28/2012 2:05 PM AIRPLANE ENGINEER)ComponentValueRef RangeTest MethodAnalysis TimePerformed AtPathologist SignatureANTI HCVNon-reactiveABBOTT REGIONAL HOSPITAL FOR RESPIRATORY AND COMPLEX CAREpecimen (Source)Anatomical Location / LateralityCollection Method / VolumeCollection TimeReceived TimeBlood specimen (specimen)BLOOD SPECIMEN / Khczdzb3010/28/2012 2:05 PM CST10/28/2012 1:59 PM AIRPLANE ENGINEER Narrative Authorizing ProviderResult TypeResult StatusMickayla Dean MDSEND OUTS Final ResultPerforming OrganizationAddressCity/State/ZIP CodePhone Number [facility] INTERNAL ZIP [address] [place] [address] * ANTI HIV 1/2 (10/28/2012 2:05 PM AIRPLANE ENGINEER)ComponentValueRef RangeTest Method Analysis TimePerformed AtPathologist SignatureANTI HIV 1/2Non-reactiveABBOTT REGIONAL HOSPITAL FOR RESPIRATORY AND COMPLEX CAREpecimen (Source)Anatomical Location / Laterality Collection Method / VolumeCollection TimeReceived TimeBlood specimen (specimen)BLOOD SPECIMEN / Ilafues3310/28/2012 2:05 PM CST10/28/2012 1:59 PM AIRPLANE ENGINEER Narrative Authorizing ProviderResult TypeResult StatusMichelle Dianne MDSEND OUTS Final ResultPerforming OrganizationAddressCity/State/ZIP CodePhone Number [facility] INTERNAL ZIP [address] [place] [address] from Last 3 Months or Most Recently Relevant to Health Maintenance Insurance * Guarantor: Clary Daniels TypeRelation to PatientDate of BirthPhone Billing AddressPersonal/XfgorsSnci1975 [place] [address] Advance Directives * Full Code (Latest Code Status on File) Date ActivatedDate KojyrnpexpeEwfrbpjy09/3/2023 6:10 AM06/26/2023 1:01 PMQuestion AnswerCommentsCode Status Discussion:* Unable to Assess Preferences, Provider to review later * Full Code Date ActivatedDate InactivatedComments11/11/2012 1:16 AM11/11/2012 11:45 AM * Full Code Date ActivatedDate InactivatedComments06/20/2010 2:16 AM06/22/2010 3:09 PM * Full Code Date ActivatedDate InactivatedComments06/19/2010 9:35 PM06/20/2010 2:16 AM * Full Code Date ActivatedDate InactivatedComments06/15/2009 5:09 PM06/21/2009 3:36 PM Care Teams Team MemberRelationshipSpecialtyStart [place] [address] [place] [address] PCP - GeneralFamily Fdckdrkv45/3/[address] [place] [address] Registered Dietician03/18/24 Lore Razo PA [address] [place] [address] Physician Assistant03/18/24 veronica Castro Mental Health Provider03/18/24
--- OUTSIDE RECORDS SUMMARY | 2025-09-07 17:59 | XMS_ITS | Patient Health Record ---
Author Organization [facility] Address [address] [place] [address] Phone [phone] Care Team Providers Care Galley Cook Name Role Phone None, None Primary Care Provider Unavailshasha ATKINS MD, ASHISH Unavailable [phone] Xochitl Eason DDS Unavailable Unavailable Reason For Referral No Information Medications Medication SIG (Take, Route, Frequency, Duration) Notes Start Date End Date Diagnosis (ICD Code) Status Naltrexone ActiveLaMICtalActivePrevacidActive Social History Tobacco Use: Social History Observation Description Date Details (start date - stop date) Never Smoker NA - NA Sex Observation Social History Observation Description Sex Observation Female Social History Alcohol Use:Social InfoQuestionAnswerNotesRecreational drugsHave you used drugs other than those for medical reasons in the past 12 months?No:Social Info QuestionAnswerNotesHow often do you consume alcohol?Answer:neverAnswer:never Recreational drug useSocial InfoQuestionAnswerNotesDid you ever use recreational drugs?Answer:NoAnswer:NoTobacco Use:Social InfoQuestionAnswerNotesTobacco use/smokingAre you anonsmokerAdditional DetailsCategorySocial InfoOptionsDetails Miscellaneous:Marital 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 Problems Problem Type SNOMED Code ICD Code Dates Problem Status W/U Sta tus Risk Notes Problem Malignant tumor of major salivary gland (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) 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 ProblemPrimary 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) (1162842113) 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) Added On:12/26/2018 ActiveconfirmedProblemSwelling of head (283816759)Buccal mass (R22.0) Added On:12/26/2018 Activeconfirmed Plan Of Treatment No Information Insurance Providers Payer Name Payer Address Payer Phone Subscriber Number Group Number Insured Name Patient Relationship to Insured Coverage Start Date Coverage End Date [facility] [address] [address] [place] [address] [id number] Clary Daniels Self - patient is the insured Medical (General) History Medical History History ICD Code acinic cell ca of parotid gland Parotid CancerSurgical History Surgery Date(Month/Year) GB removal 2005 Gall Bladder 2006 Parotid excision of lump 11/12/12 Right Parotidectomy 2012
== END 2025-09-07 18:29 | disposition left against medical advice (07) ==
LOC: ED 18:17
DX: Z53.21 Procedure and treatment not carried out due to patient leaving prior to being seen by health care provider (principal)

== ENCOUNTER 2025-09-08 13:03 | Emergency (ER) | payer OTHER, SELFPAY ==
--- OUTSIDE RECORDS SUMMARY | 2025-09-08 13:15 | XMS_ITS | Clinical Summary ---
Author Organization [facility] Address [address] [place] [id number] Care Team Providers Care Ota Name Role Phone No Ref-Primary, Physician Primary [...] 2Active Active Problems No known active problems Encounters DateTypeDepartmentCare KlkqFwaoepyrzel33/15/2025Travelfrom Last 3 Months Family History Medical HistoryRelationCommentsDepressionBrotherSubstance AbuseBrotherAnxiety DisorderMaternal GrandfatherDepressionMaternal GrandfatherAnxiety Disorder Maternal GrandmotherBipolar DisorderMaternal GrandmotherDepressionMaternal GrandmotherAnxiety DisorderMotherDepressionMotherRelationStatusCommentsBrother AliveMaternal GrandfatherAliveMaternal GrandmotherDeceasedMotherAlive Social History Tobacco UseTypesPacks/DayYears UsedDateSmoking Tobacco: NeverSmokeless Tobacco: NeverAlcohol UseStandard Drinks/WeekCommentsYes0 (1 standard drink = 0.6 oz pure alcohol)Adolescent EducationAnswerDate RecordedGetting School Help NeededNot on file3CommentsUnknownSex and Gender InformationValueDate RecordedSex Assigned at BirthNot on fileLegal DjtSxsejb39/04/2012 3:01 AM PURCHASING OFFICER Gender IdentityNot on fileSexual OrientationNot on file Last Filed Vital Signs Vital SignReadingTime TakenCommentsBlood Wvhbiovl246/9009/12/2022 6:40 PM PURCHASING OFFICER Hlyuq599409/12/2022 6:40 PM ERDHlfodwvdhtu35.4 ??C (97.6 ??F)09/12/2022 11:43 AM CSTRespiratory Ecca528711/13/2021 6:40 PM CSTOxygen Iyqtqrvche85%09/12/2022 6:40 PM CSTInhaled Oxygen Concentration--Wpygmf76.2 kg (150 lb 6.4 oz)01/03/2016 5:12 PM OKYYyiewi843.2 cm (5' 7)07/13/2011 3:03 PM CDTBody Mass Index23.561 3:03 PM CDT Plan of Treatment Health MaintenanceDue DateLast DoneCommentsADVANCE CARE KNIWOUNZ1976ANNUAL REVIEW OF HM DAFKGV0807/05/1976CT JOZULFVDFJDQ79/12/4234TAC0607/05/1976FLEX SIG 1976sDNA (Cologuard)1976PAP1HEPATITIS B VACCINE (2 of 3 - Hep B Twinrix 3-dose series)LIPID2016DTAP/TDAP/TD VACCINE (2 - Td or Tdap)/04/2012PHQ-2 (once per calendar year) 5COVID-19 VACCINE (5 - season), 08/25/2021, 01/19/2021, Additional history existsINFLUENZA VACCINE (#1)/, 06/07/2023, 07/17/2022, Additional history existsDIABETES SMRPXKDRB16/20/2025 09/12/2022, 11/23/2007, 10/16/2006YEARLY PREVENTIVE VISIT/, 02/01/2023, 07/21/2021, Additional history existsZOSTER VACCINE (1 of 2) 2026MAMMO DYFWYVLZW97/09/311770/05/2025, 12/31/2024, 2COLONOSCOPY /5COLORECTAL CANCER WOJBTUOSP51/22/2035HIV SCREENINGCompleted 10/28/2012HEPATITIS C HCVKRCFTRLsjcpmdlq29/16/2014, 10/28/2012HPV VACCINE (No Doses Required)CompletedMENINGITIS VACCINEAged OutNo longer eligible based on patient's age to complete this topicPNEUMOCOCCAL VACCINE: PEDIATRICS (0 to 5 YEARS) AND AT-RISK PATIENTS (6 to 49 YEARS)Aged OutNo longer eligible based on patient's age to complete this topic Procedures Procedure NamePriorityDate/TimeAssociated DiagnosisCommentsBASIC METABOLIC PANEL STAT111/13/2021 12:12 PM PURCHASING OFFICER from Last 3 Months or Most Recently Relevant to Health Maintenance Results * (ABNORMAL) Basic metabolic panel (BMP) (09/12/2022 12:12 PM PURCHASING OFFICER)ComponentValue Ref RangeTest MethodAnalysis TimePerformed AtPathologist GpopodbviBwtptq907492 - 145 mmol/L111/13/2021 1:02 PM [facility] LABORATORYPotassium4.33.4 - 5.3 mmol/L 09/12/2022 1:02 PM [facility] CXWYHXRNBRThfmbztj80735 - 107 mmol/L111/13/2021 1:02 PM [facility] LABORATORYCarbon Dioxide (CO2)2422 - 29 mmol/L111/13/2021 1:02 PM [facility] LABORATORYAnion Pao747 - 15 mmol/L111/13/2021 1:02 PM [facility] LABORATORYUrea Rngpcnem08.06.0 - 20.0 mg/dL09/12/2022 1:02 PM [facility] LABORATORYCreatinine1.01 (H)0.51 - 0.95 mg/dL09/12/2022 1:02 PM [facility] LABORATORYCalcium9.98.6 - 10.0 mg/dL09/12/2022 1:02 PM [facility] MCRUFWWQOFJfgrinm426(H)70 - 99 mg/dL09/12/2022 1:02 PM [facility] LABORATORYGFR Qmqmtqox34>60 mL/min/1.58p72909/12/2022 1:02 PM [facility] LABORATORYComment:Effective September 13, 2021 eGFRcr in adults is calculated using the 2020 CKD-EPI creatinine equation which includes age and gender (Shira et al., NEJ, DOI: 10.1056/CTQXyt1546795)Specimen (Source) Anatomical Location / LateralityCollection Method / VolumeCollection Time Received TimeBloodBLOOD SPECIMEN / UnknownVenipuncture / Hbytmih4709/12/2022 12:12 PM CST09/12/2022 12:36 PM [facility] Narrative Authorizing ProviderResult TypeResult StatusJerome Fredi Shine MDLAB - BLOOD ORDERABLESFinal ResultPerforming OrganizationAddressCity/State/ZIP CodePhone Number [facility] [address] (1st floor, no room number) [place] [address], [facility] [phone] from Last 3 Months or Most Recently Relevant to Health Maintenance Insurance * Guarantor: Clary Garcia TypeRelation to PatientDate of BirthPhone Billing GzyarpmBmusrwxfaiAday1975 [place] [address] Care Teams Team MemberRelationshipSpecialtyStart DateEnd Date No Ref-Primary, Physician PCP - Bpbdvvr73/20/22
--- OUTSIDE RECORDS SUMMARY | 2025-09-08 13:15 | XMS_ITS | Clinical Summary ---
Author Organization [facility] Address [address] [place] [address] Care Team Providers Care Weatherstrip Machine Operator Name Role Phone ManasErlinda wallacerajinder LOVE Unavailable [phone] Lore Razo Unavailable [phone] Neelima Almanza DO Primary Care Provid er Allergies Active AllergyReactionsCriticalityNoted AfksLrhedzugZttuccvdgIehq71/04/2025Mold Other - Describe In Comment Field04/02/2012 nasal congestion and sneezing Pollen ExtractsOther - Describe In Comment Field04/02/2012 nasal congestion and sneezing RagweedOther - Describe In Comment Field04/02/2012 nasal congestion and sneezing LoqoepxoAxafyomZzh30/25/2013 Medications * This document contains information received [...] it should be printed and faxed to [employer] (the distributor), along with a printed picture [...] order the TENS device (and pads) on [employer], as the cost is close to around $30. ?? With either ordering through [employer] or [employer], directions will be included in the package and patient would follow those 1 Each 2023ctive medication order composer Zinc: Daily Magnesium Citrate: Daily : Daily Fish oil: Daily Vitamin D 5000 IU: Daily Probiotic: Daily03/04/2024ctive cholecalciferol (VITAMIN D3) 5,000 unit capsule 03/31/2014ctive Krctb-9-ZDR-EPA-Fish Oil (Fish OiL) 1,000 (120-180) mg cap 07/24/2023ctive vepejwia76/iron donis/folic/dha ( DHA+COMPLETE ORAL) 03/31/2014ctive varenicline tartrate [...] carcinoma of parotid gland 07/27/2025urrent every day tgxbto4201/07/2025Obesity, Class I, BMI 30-34.9 04/17/2024Obesity (BMI 30-39.9)03/20/20248203Ocfalccssmsk21/27/2024Skin cancer 09/05/2023 Overview (12/18/2023): 08/30/2023, left medial chest, superficial and nodular BCC, excised 11/22/2023 Uterine afkmxmp8003/16/2023Endometrial polyp03/16/20236344Pbbaggrfley41/23/2023LGSIL of cervix of undetermined jzphhuzpvqgu24/16/2023 Overview (01/26/2025): 01/2023 LSIL/HPV negative 12/2024 NIL/HPV negative Plan: Pap/HPV due 12/2027 Wzjgfcn4506/09/2014Parotid mass03/15/2012Menstrual ucujsdku82/23/2009Esophageal wqahql9604/04/2005 Overview (04/21/2021): LW Onset: 47Vmn91 ; Gastroesophageal Reflux Disease Resolved Problems ProblemNoted DateDiagnosed DateResolved ByomEpuqjr60Parotid massNormal adafkgnv08Supervision of other normal dohredmfx09Other specified screening(V28.89) Methamphetamine abuse06/16/Frontal sinusitis ipolar 1 fktlntoy22/23/ttention deficit hyperactivity disorder (ADHD), predominantly inattentive type04/04/2005 06/07/2023 Overview (07/21/2021): LW Onset: 21Ihw95 Encounters DateTypeDepartmentCare PtizXbqpdozrgfk78/12/2025Refill [facility] [address] [place] [address] Neelima Almanza DO Refill Request (Tizanidine/)09/03/2025 5:35 PM CSTOffice Visit [facility] [address] [address] Laverne Arias MD Rash09/03/20254308Hfnggy86/10/2025Orders Only [facility] [address] [place] [address] Neelima Almanza DO <No scans attached>09/02/2025Orders Only [facility] [address] [place] [address] Neelima Almanza DO <No scans attached>09/02/2025Results Follow-Up [facility] [place] [address] [place] [address] Rafy Barker MD 09/01/2025 12:15 PM CSTAncillary Procedure [facility] [address] [facility] [address] [place] [address] 09/01/2025Telephone [facility] [address] [facility] [address] [place] [address] Lucio Linder MD Screening (Injection Prescreening- Lumbar RFA)08/31/20250803Pkjkir62/08/2025Refill [facility] [address] [place] [address] Neelima Almanza, DO Refill Request (Baclofen/)08/29/2025Refill [facility] [address] [place] [phone] Lore Razo PA Refill Request (Bupropion)08/25/2025Orders Only [facility] [address] [place] [phone] Marissa Garcia MBBS <No scans attached>08/25/2025[facility] [address] [place] [address] Marissa Garcia MBBS <No scans attached>08/25/2025Refill [facility] [address] [place] [address] Neelima Almanza DO Refill Request (meloxicam 15 mg tablet)08/14/2025Telephone [facility] [address] [place] [address] Tylor Osullivan DO Screening (INJECTION PRESCREEN)08/13/2025 1:45 PM CSTOffice Visit [facility] [address] [place] [address] Rafy Barker MD Back Pain (Follow up)08/12/2025 11:00 AM CSTAncillary Procedure [facility] [address] [facility] [address] [place] [address] 08/12/20257647Mjmkov71/18/2025Refill [facility] [address] [place] [address] Lore Razo PA Refill Request (Phentermine)08/10/2025Refill [facility] [address] [place] [address] Neelima Almanza DO Refill Request (tiZANidine (ZANAFLEX) 4 mg tablet)08/10/2025Medical Messaging [facility] [address] [place] [address] Rafy Barker MD Sciatica pain08/10/20250678Fhexcs20/16/1336Achdyu10/05/2025 11:44 AM DRYWALL SPRAYER - 07/29/2025 11:59 PM CSTHospital Encounter [facility] [place] [address] [facility] [address] [place] [address] Rafy Barker MD Ferebee, Ashley, PT Low back pain radiating to both legs; Lumbar facet iuaelhqelwu20/05/7535Zxvsiu27/03/2025 10:40 AM CSTOffice Visit [facility] [address] [place] [address] Neelima Almanza DO Back Pain (follow up x 1 mo/worsening pain); Medication Management (gabapentin) 07/26/20252646Sacbzm00/02/2025Refill [facility] [place] [address] [place] [phone] Clary Terry DO Refill Request (Progesterone Micronized)07/24/2025 10:00 AM CDTTelemedicine [facility] [address] [place] [address] Lore Razo PA Telehealth (No vitals); Weight ([facility] follow up Bupropion, Naltrexone, Topiramate. Wants to discuss GLP-1 today. Zepbound and Saxenda are covered but high copay. /RD 09/02 Kristy )07/23/2025Refill [facility] [address] [place] [address] Neelima Almanza DO Refill Request (gabapentin (NEURONTIN) 100 mg capsule Take 1 cap oral in AM and at noon along with 3 caps at night. After 3-4 days if needed consider increasing to 2 caps in AM and at noon along withevening dose of 3 caps.//)07/21/2025Travel 07/17/2025Refill [facility] [address] [place] [address] Rafy Barker MD Refill Request (Prednisone)07/12/20252619Dmlbri16/15/2025 11:15 AM CDTOffice Visit [facility] [address] [place] [address] Rafy Barker MD Back Pain (Follow up)07/08/20256439Dzpfhn37/06/20254762Rnzeyq99/07/2025Telephone [facility] [address] [place], [place] [address] Rafy Barker MD Rjhhpfvg11/02/2025Refill [facility] [address] [place] [address] Neelima Almanza DO Refill Request (Premarin)06/24/2025 1:05 PM CDTOffice Visit [facility] [address] [place] [address] Neelima Almanza DO Back Pain (Lower back pain + Sciatica x March); Menopause (perimenopause) 06/24/20258072Usrnni26/28/2025Travelfrom Last 3 Months Immunizations ImmunizationAdministration DatesNext DueAMB [...] by your partner or ex-partner?No07/21/2021HQ-2AnswerDate RecordedPHQ-2 TOTAL LKTDU100Social ConnectionsAnswerDate RecordedDo you often feel lonely or isolated from those around you?lcohol UseAnswer Date RecordedHow often do you have a drink containing alcohol?How many drinks containing alcohol do you have on a typical day when you are drinking?How often do you have five or more drinks on one occasion?0 07/27/2025Financial Resource StrainAnswerDate RecordedDifficulty of Paying Living Eowbxqua457/16/2025Difficulty of Paying Living ExpensesNot on file 08/09/2025Food [...] 08/09/2025CommentsNoSex and Gender InformationValueDate RecordedSex Assigned at HfqveNdvzfn16/02/2021 2:56 PM CSTLegal UosDqohmn80/14/2013 6:49 AM CSTGender JwvylnzwAqrsxy65/02/2021 2:56 PM CSTSexual OrientationStraight 10/26/2020 2:56 PM CSTOccupationIndustryJob Start DateJob End DateHAIRSTYLISTNot on fileNot on fileNot on filelead camera prototyping engineer & office mgrNot on fileNot on fileNot on file Obstetrics History GravidaParaTermPretermABIABSABEctopicMultipleLivingLive Bsimar826226EatkWxoebsh GATotal LaborLabor/2nd/6oeYokpnmLbsBdajFrpdYHSRbuB3E7SkcqMjgd4515DQ54/07/2003 Jnfy71f8o48f 00m/3.09 kg (6 lb 13 oz)MVag-SpontEpidural,EpiduralNLivingMason Delivery Location:[facility]06/20/20103592Olxk43o0i7g 30m/3.06 kg (6 lb 12 oz)MVagEpidural ,EpiduralNLivingMylesJohnsonDelivery Location:[facility] Comments:No complications Last Filed Vital Signs Vital SignReadingTime TakenCommentsBlood Smyxjwyy673/7209/03/2025 5:30 PM DRYWALL SPRAYER Jrgkp467509/03/2025 5:30 PM MXUKietycprmkr88.6 ??C (97.9 ??F)09/03/2025 5:30 PM CSTRespiratory Sgoy649811/04/2024 5:30 PM CSTOxygen Ynewcbkbkq34%09/03/2025 5:30 PM CSTInhaled Oxygen Concentration--Dicqbg94.5 kg (201 lb 11.2 oz)08/13/2025 1:00 PM COJZoymah958.5 cm (5' 6.34)07/27/2025 10:48 AM CSTBody Mass Index32.22 07/27/2025 10:48 AM DRYWALL SPRAYER Plan of Treatment DateTypeDepartmentCare Team (Latest Contact Info)Spbbaomffdn10/14/2026 1:00 [address] CSTTelemedicine [address] [phone] Kristy Bah, KATE [address] [place] [address] 10/26/2025 3:30 PM CSTTelemedicine [address] [phone] [place] [address] [place] [address] Health MaintenanceDue DateLast DoneCommentsPneumococcal series for age 6-49 (1 of 2 - PCV)1995Hepatitis B series for 19+ (2 of 3 - Hep B Twinrix 3-dose series)Tetanus sdqfidu34COVID-19 vaccine series ( season)/, 07/17/2022, 08/25/2021, Additional [...] existsColonoscopy through age 75HIV for age 15-65 Npxeoasdr77/04/2013, 12/29/2009Hepatitis C screening for age 18-79Completed 10/28/2012 Procedures Procedure NamePriorityDate/TimeAssociated DiagnosisCommentsXR SPINE LUMBAR MINIMUM 4 YNQKVRcbunia01/09/2025 12:28 PM DRYWALL SPRAYER Low back pain radiating to both legs Numbness and tingling of both feet Degeneration of intervertebral disc of lumbar region with discogenic back pain Lumbar facet arthropathy MR SPINE LUMBAR BZJVPV9410/12/2024 11:35 AM DRYWALL SPRAYER Low back pain radiating to both legs Numbness and tingling of both feet Degeneration of intervertebral disc of lumbar region with discogenic back pain Lumbar facet arthropathy SCAN-KUOIEZCKTKR74/22/2025 10:30 AM CDT URINALYSIS MACROSCOPIC - [facility] ONLY POC DIP ([facility])Iafugvq0106/24/2025 2:08 PM CDT Urgency of urination BASIC METABOLIC FUARIIxczolm19/01/2025 2:08 PM CDT Elevated serum creatinine LIPID PANEL W REFLEX MEASURED NNBBtmzscc43/16/2025 1:29 PM CDT Screening for cholesterol level COMMUNITY HEALTH AGENT THIN PREP PAP DIAGNOSTIC IHUCVUOffeqbc99/16/2025 1:15 PM CDT LGSIL of cervix of undetermined significance XR MAMMO АНДРЕЙ BILAT DYNZMXLlgsycz35/09/2025 1:17 PM CDT Visit for screening mammogram ANTI HIV 1/2Ggoyuwl42/04/2013 2:05 PM DRYWALL SPRAYER Screen for STD (sexually transmitted disease) ANTI QGZRlrvyfg07/04/2013 2:05 PM DRYWALL SPRAYER Screen for STD (sexually transmitted disease) from Last 3 Months or Most Recently Relevant to Health Maintenance Results * XR SPINE LUMBAR MINIMUM 4 VIEWS (09/01/2025 12:28 PM DRYWALL SPRAYER)Anatomical Region LateralityModalitySpine, LUMBAR SPINEDigital RadiographySpecimen (Source) Anatomical Location / LateralityCollection Method / VolumeCollection Time Received Time09/01/2025 8:59 PM DRYWALL SPRAYER Impressions 09/01/2025 8:59 PM DRYWALL SPRAYER 1. Fdxj-cd-xhychamr lumbar degenerative changes. 2. Unchanged alignment on flexion-extension views. Dictated by Enrique Granados MD @ 09/01/2025 8:59:55 PM (Electronically Signed) Narrative 09/01/2025 8:59 PM DRYWALL SPRAYER For Patients: As a result of the [...] on L3 is unchanged on flexion-extension views. Hnks-pl-lynsfwam degenerative changes greatest at L4-5 and L2-3. [...] L2 on L3is unchanged on flexion-extension views. Lrci-mf-cwgqevyn degenerativechanges greatest at L4-5 and L2-3. No acute or other osseous abnormality.Right upper quadrant surgical clips. Fecal loading of the proximal colon. IMPRESSION: 1. Ptan-am-pvaifbzq lumbar degenerative changes. 2. Unchanged alignment on flexion-extension views. Dictated by Enrique Granados MD @ 09/01/2025 8:59:55 PM (Electronically Signed) Authorizing ProviderResult TypeResult StatusMark Johnathan Barker MDGENERAL IMAGING Final Result * MR SPINE LUMBAR WO (08/12/2025 11:35 AM DRYWALL SPRAYER)Anatomical RegionLaterality ModalitySpine, LUMBAR SPINEMagnetic ResonanceSpecimen (Source)Anatomical Location / LateralityCollection Method / VolumeCollection TimeReceived Time 08/12/2025 12:02 PM DRYWALL SPRAYER Narrative 08/12/2025 12:02 PM DRYWALL SPRAYER For Patients: As a result of the [...] L5-S1: Mild disc degeneration. Shallow disc bulge. Ozdd-xz-mptpxoop facet arthropathy. No spinal canal or neural [...] L5-S1: Mild disc degeneration. Shallow disc bulge. Kbxi-os-cofreymd facet arthropathy. No spinal canal or neural [...] Giraldo MD - 07/15/2025 9:39 AM CDT [facility] [address] [facility], [address], [place] [address] Patient Name: Clary Daniels Gender: Female Exam Date: 07/15/2025 Visit Number: [id number] Age: 50 Years Date of : 1975 Attending MD: Nikita Giraldo MD Medical Record#: [id number] Procedure: Colonoscopy Indications: Colorectal cancer screening Referring [...] signed by: Brittny Gregory DO Interpreted at [facility], [address] [place] [phone] Orders Instruction(s)/Education: Instruction/Education Timeframe Assessment Colon Cancer [...] MethodAnalysis TimePerformed AtPathologist SignatureCOLORYellowYellow Color06/24/2025 2:11 PM [facility] HOBARTCLARITYClearClear Dkmmyfp7006/24/2025 2:11 PM [facility] FAIRVIEWPECIFIC GRAVITY,URINE1.0101.010, 1.015, 1.020, 1.025 06/24/2025 2:11 PM [facility] HOBARTPH,URINE7.06.0, 7.0, 8.0, 5.5, 6.5, 7.5, 8. 2:11 PM [facility] HOBARTUROBILINOGEN,QUALITATIVENormalNormal EU/dl06/24/2025 2:11 PM [facility] HOBARTPROTEIN, URINENegativeNegative mg/dL06/24/2025 2:11 PM CDSA[facility] – VINITAGLUCOSE, URINENegativeNegative mg/dL06/24/2025 2:11 PM CDSAINT [facility] – VINITAKETONES,URINE NegativeNegative mg/dL06/24/2025 2:11 PM [facility] HOBARTBILIRUBIN,LXJXIVpgntpueZukcybpe02/01/2025 2:11 PM CDSA[facility] – VINITAOCCULT BLOOD,JZHOOVicqksrxPbjshssv13/01/2025 2:11 PM CDT [facility] OKLAH[facility] CITYNITRITENegativeNegative06/24/2025 2:11 PM [facility] HOBARTLEUKOCYTE ESTERASENegativeNegative 06/24/2025 2:11 PM [facility] FAIRVIEWpecimen (Source) Anatomical Location / LateralityCollection Method / VolumeCollection Time Received TimeUrineURINE SPECIMEN / UnknownNon-Blood / Zineiky8606/24/2025 2:08 PM CDT1 2:08 PM CDT Narrative Authorizing ProviderResult TypeResult StatusJacqueline Estelle Almanza DOURINE Final ResultPerforming OrganizationAddressCity/State/ZIP CodePhone Number [facility] [address] [place] [address], * (ABNORMAL) BASIC METABOLIC PANEL (06/24/2025 2:08 PM CDT)ComponentValueRef RangeTest MethodAnalysis TimePerformed AtPathologist MpyaaykwgKSPUWC093144 - 146 mmol/L1 8:17 AM CDTQUEST DIAGNOSTICSPOTASSIUM3.93.5 - 5.3 mmol/L 06/25/2025 8:17 AM CDTQUEST DIAGNOSTICSCARBON BWGBJTA1033 - 32 mmol/L 06/25/2025 8:17 AM CDTQUEST GYVVNKDCAVEQMLOLBT0815 - 99 mg/dL06/25/2025 8:17 AM CDTQUEST DIAGNOSTICSComment: ? Fasting reference interval CALCIUM9.68.6 - 10.2 mg/dL06/25/2025 8:17 AM CDTQUEST DIAGNOSTICSCREATININE1.12 (H)0.50 - 0.99 mg/dL06/25/2025 8:17 AM CDTQUEST DIAGNOSTICSBUN/CREATININE RATIO 136 - 22 (calc)06/25/2025 8:17 AM CDTQUEST XCEUFVHUQXZGBAJ93> OR = 60 mL/min/1.03u49506/25/2025 8:17 AM CDTQUEST DIAGNOSTICSUREA NITROGEN (BUN)147 - 25 mg/dL06/25/2025 8:17 AM CDTQUEST DIAGNOSTICSELECTROLYTE VWMXKZL00 - 17 mmol/L (calc)06/25/2025 8:17 AM CDTQUEST YVPXSJWYBOVDCDTCCBW29214 - 110 mmol/L 06/25/2025 8:17 AM CDTQUEST DIAGNOSTICSSpecimen (Source)Anatomical Location / LateralityCollection Method / VolumeCollection TimeReceived TimeBloodBLOOD SPECIMEN / UnknownNon-Lab Venipuncture / Lhkxidg1206/24/2025 2:08 PM CDT1 2:08 PM CDT Narrative Authorizing ProviderResult TypeResult StatusJacqueesperanza Almanza DOCHEMISTRY Final ResultPerforming OrganizationAddressCity/State/ZIP CodePhone Number [employer] [place] [address] [place] [address], * (ABNORMAL) LIPID PANEL W REFLEX MEASURED LDL (01/07/2025 1:29 PM CDT)Component ValueRef RangeTest MethodAnalysis TimePerformed AtPathologist Signature CHOLESTEROL, RTVEI980(H)<200 mg/dLQuest TopLog [facility] CareDL AQSMYUGMBKL19 > OR = 50 mg/dLQuest TopLog PefaUPGMIOCOCXFEY82<150 mg/dLQuest TopLog [facility] MountaineLDL-ISKSJAZBXDV079(H)mg/dL (calc)KnewtoneComment: Reference range: <100 Desirable range <100 mg/dL for primary prevention; <70 mg/dL for patients with CHD or diabetic patients with > or = 2 CHD risk factors. LDL-C is now calculated using the Misa calculation, which is a validated novel method providing better accuracy than the Friedewald equation in the estimation of LDL-C. Stephan LARIOS et al. SLAVA. 2013;310(19): 3922-6320 (http://education.Interbank FX/faq/TKJ832) CHOL/HDLC RATIO3.5<5.0 (calc)[employer]-Jacinto LindoVandana HDL IWQGMQSMLJS281 (H)<130 mg/dL (calc)AcademixDirect DiagnosticsMahnomen Health Center GuichoeComment: For patients with diabetes plus 1 major ASCVD risk factor, treating to a non-HDL-C goal of <100 mg/dL (LDL-C of <70 mg/dL) is considered a therapeutic option. Specimen (Source)Anatomical Location / LateralityCollection Method / Volume Collection TimeReceived TimeBloodBLOOD SPECIMEN / Rkcbwgz0701/07/2025 1:29 PM CDT 01/07/2025 1:30 PM CDT Narrative [facility] - 01/08/2025 4:38 AM CDT FASTING:YES FASTING: YES Authorizing ProviderResult TypeResult StatusRobmasha Orantes PACHEMISTRYFinal ResultPerforming OrganizationAddressCity/State/ZIP CodePhone Number [employer] [address] [place] [address], [facility] [address] [place] [address] * COMMUNITY HEALTH AGENT THIN PREP PAP DIAGNOSTIC IMAGED (01/07/2025 1:15 PM CDT)ComponentValueRef RangeTest MethodAnalysis TimePerformed AtPathologist SignatureCase Report Gynecologic Cytology Report ? Case: [id number] ? Authorizing Provider: ??Chad Orantes PA ? Collected: ? 01/07/2025 1315 ? Ordering Location: ? [facility] ?Received: ?01/07/2025 1327 ? [facility] ? First Screen: ?Lory, Earnestine ? Rescreen: ?Lisa Ruvalcaba ? Specimen: ?COMMUNITY HEALTH AGENT ThinPrep Vial Diagnostic, Cervical ? 01/26/2025 2:56 PM [facility] INTERPRETATION/RESULTNEGATIVE FOR INTRAEPITHELIAL LESION OR MALIGNANCY (NIL) (none)01/26/2025 2:56 PM [facility] at 1456 CDTSPECIMEN ADEQUACY Satisfactory for evaluation No endocervical component seen01/26/2025 2:56 PM [facility]- CENTRAL LABORATORYHPV REQUESTHPV and PAP01/26/2025 2:56 PM [facility]-CENTRAL LABORATORYDate of LMP12/05/2504 2:56 PM [facility]-CENTRAL LABORATORYLast Pap Date02/01/2305 2:56 PM CDT [facility]-CENTRAL LABORATORYLast Pap UzoipdUPNN29/05/2025 2:56 PM [facility]-C[facility] LABORATORYAbnormal Pap or [place]ton Bx in last 5 iuadhKtw59/01/2025 2:56 PM [facility] Menstrual StatusRegular Ulnwnxv8801/26/2025 2:56 PM [facility] CENTRAL LABORATORYColp Bx Done ZfhzlDv5501/26/2025 2:56 PM [facility] LABORATORYAdditional InformationNone Given01/26/2025 2:56 PM [facility]-CENTRAL LABORATORYComment: Cytology is screened at [facility] - [address], [place] [address] and [facility] - [address], [place] [address] and [facility] - [address] [place] [address] Interpreted at [facility] - [address], [place] [address] Automated VjuvryOcjtumuuac51/05/2025 2:56 PM [facility] LABORATORYComment:Specimen processed successfully by automated shock absorption floor layer device, ThinPrep Imaging System, [employer]ANCILLARY TESTING GYNHPV Ordered, Please see separate ovgvac9701/26/2025 2:56 PM [facility]AL LABORATORYNoteThe pap test is a screening technique, not a diagnostic procedure. It is used primarily to screen for squamous cancers and precursor lesions. Published studies have shown that it is subject to both false negative and false positive results. The pap test should not be used as the sole means to diagnose or exclude pre-malignant and malignant lesions.01/26/2025 2:56 PM [facility] LABORATORYSpecimen (Source)Anatomical Location / LateralityCollection Method / VolumeCollection TimeReceived TimeOther (Cervical) Non-Blood / Lnuctlw6801/07/2025 1:15 PM CDT01/07/2025 1:27 PM CDT Narrative Authorizing ProviderResult TypeResult StatusRobbin Rob ALBA PATHOLOGY/CYTOLOGYFinal ResultPerforming OrganizationAddressCity/State/ZIP Code Phone Number [facility] [address] [place] [address], [place] * XR MAMMO АНДРЕЙ BILAT SCREEN [...] care provider. XR MAMMO АНДРЕЙ BILAT SCREEN [[id number]] CLINICAL HISTORY: ??This is an asymptomatic 49 [...] Result * ANTI HCV (10/28/2012 2:05 PM DRYWALL SPRAYER)ComponentValueRef RangeTest MethodAnalysis TimePerformed AtPathologist SignatureANTI HCVNon-reactiveABBOTT GRAYS HARBOR COMMUNITY HOSPITALpecimen (Source)Anatomical Location / LateralityCollection Method / VolumeCollection TimeReceived TimeBlood specimen (specimen)BLOOD SPECIMEN / Itvpwgp4210/28/2012 2:05 PM CST10/28/2012 1:59 PM DRYWALL SPRAYER Narrative Authorizing ProviderResult TypeResult StatusMickayla Dean MDSEND OUTS Final ResultPerforming OrganizationAddressCity/State/ZIP CodePhone Number [facility] [place]NAL ZIP [phone] [place] [address] * ANTI HIV 1/2 (10/28/2012 2:05 PM DRYWALL SPRAYER)ComponentValueRef RangeTest Method Analysis TimePerformed AtPathologist SignatureANTI HIV 1/2Non-reactiveABBOTT GRAYS HARBOR COMMUNITY HOSPITALpecimen (Source)Anatomical Location / Laterality Collection Method / VolumeCollection TimeReceived TimeBlood specimen (specimen)BLOOD SPECIMEN / Migovtz9210/28/2012 2:05 PM CST10/28/2012 1:59 PM DRYWALL SPRAYER Narrative Authorizing ProviderResult TypeResult StatusMichelle Dianne MDSEND OUTS Final ResultPerforming OrganizationAddressCity/State/ZIP CodePhone Number [facility] INTERNAL ZIP [address] [place] [address] from Last 3 Months or Most Recently Relevant to Health Maintenance Insurance * Guarantor: Clary Daniels TypeRelation to PatientDate of BirthPhone Billing AddressPersonal/UthcrbJclq1975 [place] [address] Advance Directives * Full Code (Latest Code Status on File) Date ActivatedDate IqbeafokvglRodkftvz33/3/2023 6:10 AM06/26/2023 1:01 PMQuestion AnswerCommentsCode Status Discussion:* [...] Team MemberRelationshipSpecialtyStart [place] [address] [place] [address] PCP - GeneralFamily Dcmweftx98/3/[address] [place] [address] Registered Dietician03/18/24 Lore [facility] [address] [place] [address] Physician Assistant03/18/24 veronica Castro Mental Health Provider03/18/24
--- OUTSIDE RECORDS SUMMARY | 2025-09-08 13:15 | XMS_ITS | Encounter Summary ---
Author Organization [facility] Address [address] [place] [address]. [place] [address] Care Team Providers Care Manager Recovery Name Role Phone No Ref-Primary, Physician Primary Care Provider Encounter Details DateTypeDepartmentCare Team (Latest Contact Info)Ctzrpurbavz76/15/2025Travel Social History Tobacco UseTypesPacks/DayYears UsedDateSmoking Tobacco: NeverSmokeless Tobacco: NeverAlcohol UseStandard Drinks/WeekCommentsYes0 (1 standard drink = 0.6 oz pure alcohol)Adolescent EducationAnswerDate RecordedGetting School Help NeededNot on file3CommentsUnknownSex and Gender InformationValueDate RecordedSex Assigned at BirthNot on fileLegal WwwSduomj43/04/2012 3:01 AM SAT INSTRUCTOR Gender IdentityNot on fileSexual OrientationNot on filedocumented as of this encounter Plan of Treatment Not on file documented as of this encounter Visit Diagnoses Not on filedocumented in this encounter Care Teams Team MemberRelationshipSpecialtyStart DateEnd Date No Ref-Primary, Physician PCP - Aymyekg34/20/22documented as of this encounter
--- OUTSIDE RECORDS SUMMARY | 2025-09-08 13:15 | XMS_ITS | Patient Health Record ---
Author Organization 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 Problems Problem Type SNOMED Code ICD Code Dates Problem Status W/U Sta tus Risk Notes Problem Malignant tumor of major salivary gland (964184968) 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 ProblemPrimary 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) (4334979239) 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) Added On:12/26/2018 ActiveconfirmedProblemSwelling of head (570094301)Buccal mass (R22.0) Added On:12/26/2018 Activeconfirmed Plan Of Treatment No Information Insurance Providers Payer Name Payer Address Payer Phone Subscriber Number Group Number Insured Name Patient Relationship to Insured Coverage Start Date Coverage End Date [facility] [address] [address] [place] [address] [id number] Clary Daniels Self - patient is the insured Medical (General) History Medical History History ICD Code acinic cell ca of parotid gland Parotid CancerSurgical History Surgery Date(Month/Year) GB removal 2005 Gall Bladder 2006 Parotid excision of lump 11/12/12 Right Parotidectomy 2012
[2025-09-08 13:40] VITALS: BP 155/101; PULSE 95; RESP 18; TEMP 36.7; O2SAT 99
== END 2025-09-08 14:52 | disposition left against medical advice (07) ==
LOC: ED 14:42
PROVIDERS: Emergency Provider Student in an Organized Health Care Education/Training Program
DX: Z53.21 Procedure and treatment not carried out due to patient leaving prior to being seen by health care provider (principal)